=== PATIENT | male | born 1970 | race Caucasian/White ===

== ENCOUNTER 2017-10-30 19:28 | Emergency (ER) | payer BC ==
--- NOTE | 2017-10-30 19:34 | PDOC ---
History of Present Illness - General Chief Complaint: Pain, Acute Stated Complaint: PAIN Time Seen by Provider: 10/30/17 19:34 - History of Present Illness Initial Comments: 10/30/17 19:53 This 47-year-old man with a history of hypertension presents with a one-day history of right-sided abdominal pain. Patient states that pain was dull and "7 /10" in severity yesterday afternoon at onset of pain. He denies any nausea/ vomiting, fever/chills, diarrhea or constipation. No chest pain or shortness of breath Pain continued today although milder ("4/10"). Patient was seen in urgent care earlier today; WBC count was elevated and patient referred here for further evaluation. Past history notable for 2 previous episodes of diverticulitis (2005, 2009). He was hospitalized for first episode but resolved after outpatient antibiotic course after second episode. No history of gallbladder abnormalities. No history of renal stones. Patient denies hematuria/dysuria/urinary urgency or frequency Patient has been able to eat and drink normally today; most recent meal was approximately 5 hours prior to presentation. Last BM yesterday afternoon was normal. Medications Ramipril No known ALLERGIES PMH HTN Diverticular disease sleep apnea(uses CPAP at night) Past History - Past Medical History Allergies/Adverse Reactions: Allergies Allergy/AdvReac Type Severity Reaction Status Date / Time No Known Allergies Allergy Unverified 10/30/17 19:29 Home Medications: Ambulatory Orders Ramipril 2.5 mg PO DAILY 10/30/17 Review of Systems - Review of Systems Able to Perform ROS?: Yes Comments:: 12 point review of systems is negative except for what is noted in the history of present illness *Physical Exam - Physical Exam Comments: GENERAL: Adult male, alert and oriented 3, in no acute distress HEAD: Normal with no signs of trauma. EYES: PERRLA, EOMI, sclera anicteric, conjunctiva clear. ENT: Ears normal, nares patent, oropharynx clear without exudates. Moist mucous membranes. NECK: Normal range of motion, supple without lymphadenopathy, JVD, or masses. LUNGS: Breath sounds equal, clear to auscultation bilaterally. No wheezes, and no crackles. HEART:Regular rate and rhythm, normal S1 and S2 without murmur, rub or gallop. ABDOMEN:.normal bowel sounds; mild tenderness mid right abdomen/right flank; no guarding or rebound; no organomegaly EXTREMITIES: Normal range of motion, no edema. No clubbing or cyanosis. No erythema, or tenderness. NEUROLOGICAL: Cranial nerves II through XII grossly intact. Normal speech. No focal neurological deficits. MUSCULOSKELETAL: Back non-tender to palpation, no CVA tenderness SKIN: Warm, Dry, normal turgor, no rashes or lesions noted. ED Treatment Course - LABORATORY CBC & Chemistry Diagram: 10/30/17 20:00 10/30/17 20:00 Medical Decision Making - Medical Decision Making 10/30/17 20:31 This 47-year-old man with a history of diverticular disease presents with 1 day history of right mid abdomen/right flank pain. No history of fever or vomiting. No history of symptoms. Patient has mild tenderness right mid abdomen without peritoneal signs. No Linda's sign. CBC/chemistry profile/ lactate/UA sent Differential diagnosis includes diverticulitis/appendicitis/renal stone/biliary tract pathology; doubt pancreatitis 10/30/17 21:57 Abdominal/pelvic CT shows 1. 7 cm dilatation of the appendix with marked periappendiceal fat stranding/inflammation. No evidence of perforation or abscess. There is a 3 mm nonobstructing right renal calculus without obstructive uropathy present. White blood cell count elevated at 15,500 10/30/17 22:[address] Horowitz who is on-call for general surgery. He suggests Zosyn 3.375 g every 6 hours/nothing by mouth/fluids/analgesia as necessary. He will see the patient in the morning for reevaluation/surgery 10/31/17 05:21 Patient was given one dose of Zosyn 3.375 g IV Case was discussed with FRIEDA Carlos of [facility]; the patient was examined by her and patient admitted to inpatient service under Dr. Quintanilla. Admission orders were written. Patient was very concerned that he would not be able to sleep without his CPAP machine (he was told that we had CPAP equipment here but he stated that he did not know his settings and did not want to use any other machine except his own. ) Therefore, he signed out AGAINST MEDICAL ADVICE at 11:55 PM, stating that he would return with his CPAP equipment . Risks of leaving the hospital explained to the patient, who understood the danger of perforation/sepsis with acute appendicitis. However, patient did not return. Dr. Quintanilla informed. Message left with Dr. Horowitz's service *DC/Admit/Observation/Transfer Diagnosis at time of Disposition: Acute appendicitis Qualifiers: Acute appendicitis type: unspecified acute appendicitis type Qualified Code(s) : K35.80 - Unspecified acute appendicitis - Discharge Dispostion Disposition: AGAINST MEDICAL ADVICE Condition at time of disposition: Stable Admit: Yes - Referrals Referrals: Kiet Nelson [Primary Care Provider] - - Patient Instructions - Post Discharge Activity
[2017-10-30 19:38] VITALS: BMI 33.0
[2017-10-30 20:35] LABS: HEMATOCRIT 46.7 % (35.4-49); MCH 29.5 pg (25.7-33.7); MCHC 34.2 g/dl (32.0-35.9); MEAN CELL VOLUME 86.1 fl (80-96); MEAN PLT VOLUME 8.5 fl (7.5-11.1); PLATELET COUNT 273 K/MM3 (134-434); RBC 5.42 M/mm3 (4.00-5.60); RDW 12.6 % (11.9-15.9); WHITE BLOOD COUNT 15.5 K/mm3 (4.0-10.8)
[2017-10-30 20:40] LABS: ALBUMIN 3.9 g/dl (3.5-5.0); ALK PHOS 60 U/L (32-92); ANION GAP 6 (8-16); BILIRUBIN,TOTAL 1.7 mg/dl (0.2-1.0); BLOOD UREA NITROGEN 12 mg/dl (7-18); CALCIUM 9.3 mg/dl (8.4-10.2); CHLORIDE 103 mmol/L (98-107); CO2 24 mmol/L (22-28); CREATININE 0.8 mg/dl (0.6-1.3); GLUCOSE,RANDOM 158 mg/dl (74-106); POTASSIUM 3.6 mmol/L (3.5-5.1); SGOT/AST 18 U/L (10-42); SGPT/ALT 14 U/L (10-40); SODIUM 133 mmol/L (136-145); TOT PROT 7.3 g/dl (6.4-8.3)
[2017-10-30 21:09] LABS: PLATELET ESTIMATE ADEQUATE
[2017-10-30 21:23] LABS: URINE APPEARANCE Clear; URINE BILIRUBIN Negative (NEGATIVE); URINE BLOOD Negative (NEGATIVE); URINE GLUCOSE (UA) Negative (NEGATIVE); URINE KETONE Negative (NEGATIVE); URINE LEUK ESTERASE Negative (NEGATIVE); URINE NITRITE Negative (NEGATIVE); URINE PROTEIN Trace (NEGATIVE)
[2017-10-30 21:24] LABS: URINE COLOR YELLOW
[2017-10-30] MEDS ORDERED: PIPERACILLIN/TAZOB 3.375 GM 50 ML IVPB ONE (22:07)
[2017-10-30] MEDS ORDERED: PIPERACILLIN/TAZOBACTAM 3.375 GM VIAL IVPB ONE (22:16)
--- NOTE | 2017-10-30 22:20 | HP ---
CHIEF COMPLAINT: Abdominal Pain PCP: HISTORY OF PRESENT ILLNESS: This is a 47 y/o man with a past medical history of Diverticulitis. Who presents to the ED sent in by [facility] for R-sided abdominal pain x 1 day. Patient reports noting tenderness to his R-mid abdomen, increased with movement. Patient reports tolerating meals and beverages today without incident. Patient denies fever, chills, cough, SOB, CP, palpitations, N/V/D, constipation, dysuria. Patient denies fall or trauma. Patient was given Cipro and Metronidazole at [facility] ER course was notable for: (1) CTAP- acute appendicitis (2) Sepsis: WBC 15.5, T 99.4, P 125 (3) EKG ST 109bpm Recent Travel: None PAST MEDICAL HISTORY: HTN Diverticulitis FILIPE PAST SURGICAL HISTORY: None Social History: Smoking: Never Alcohol: Occasional Drugs: None Lives with spouse, employed [employer] Family History: Father- [place], age 69 Mother- [place] (Multiple Myeloma), age 65 Allergies No Known Allergies Allergy (Unverified 10/30/17 19:29) HOME MEDICATIONS: Home Medications Medication Instructions Recorded Ramipril 2.5 mg PO DAILY 10/30/17 REVIEW OF SYSTEMS CONSTITUTIONAL: Absent: fever, chills, diaphoresis, generalized weakness, malaise, loss of appetite, weight change HEENT: Absent: rhinorrhea, nasal congestion, throat pain, throat swelling, difficulty swallowing, mouth swelling, ear pain, eye pain, visual changes CARDIOVASCULAR: Absent: chest pain, syncope, palpitations, irregular heart rate, lightheadedness , peripheral edema RESPIRATORY: Absent: cough, shortness of breath, dyspnea with exertion, orthopnea, wheezing, stridor, hemoptysis GASTROINTESTINAL: abdominal pain Absent: abdominal distension, nausea, vomiting, diarrhea, constipation, melena, hematochezia GENITOURINARY: Absent: dysuria, frequency, urgency, hesitancy, hematuria, flank pain, genital pain MUSCULOSKELETAL: Absent: myalgia, arthralgia, joint swelling, back pain, neck pain SKIN: Absent: rash, itching, pallor HEMATOLOGIC/IMMUNOLOGIC: Absent: easy bleeding, easy bruising, lymphadenopathy, frequent infections ENDOCRINE: Absent: unexplained weight gain, unexplained weight loss, heat intolerance, cold intolerance NEUROLOGIC: Absent: headache, focal weakness or paresthesias, dizziness, unsteady gait, seizure, mental status changes, bladder or bowel incontinence PSYCHIATRIC: Absent: anxiety, depression, suicidal or homicidal ideation, hallucinations. PHYSICAL EXAMINATION Vital Signs - 24 hr 10/30/17 19:32 Temperature 99.4 F Pulse Rate 125 H Respiratory 16 Rate Blood Pressure 175/106 O2 Sat by Pulse 100 Oximetry (%) GENERAL: Awake, alert, and fully oriented, in no acute distress. HEAD: Normal with no signs of trauma. EYES: Pupils equal, round and reactive to light, extraocular movements intact, sclera anicteric, conjunctiva clear. No lid lag. EARS, NOSE, THROAT: Ears normal, nares patent, oropharynx clear without exudates. Moist mucous membranes. NECK: Normal range of motion, supple without lymphadenopathy, JVD, or masses. LUNGS: Breath sounds equal, clear to auscultation bilaterally. No wheezes, and no crackles. No accessory muscle use. HEART: Regular rate and rhythm, normal S1 and S2 without murmur, rub or gallop. ABDOMEN: RMQ tenderness, hypoactive bowel sounds Soft, obese, not distended, no guarding, no rebound, no masses. No hepatomegaly or splenomegaly. MUSCULOSKELETAL: Normal range of motion at all joints. No bony deformities or tenderness. No CVA tenderness. UPPER EXTREMITIES: 2+ pulses, warm, well-perfused. No cyanosis. No clubbing. No peripheral edema. LOWER EXTREMITIES: 2+ pulses, warm, well-perfused. No calf tenderness. No peripheral edema. NEUROLOGICAL: Cranial nerves II-XII intact. Normal speech. Normal gait. PSYCHIATRIC: Cooperative. Good eye contact. Appropriate mood and affect. SKIN: Warm, dry, normal turgor, no rashes or lesions noted, normal capillary refill. Laboratory Results - last 24 hr 10/30/17 10/30/17 10/30/17 09:15 20:00 20:00 WBC 15.5 H RBC 5.42 Hgb 16.0 Hct 46.7 MCV 86.1 MCH 29.5 MCHC 34.2 RDW 12.6 Plt Count 273 MPV 8.5 Neutrophils % No Result Required. Neutrophils % (Manual) 78.0 Band Neutrophils % 4.0 Lymphocytes % No Result Required. Lymphocytes % (Manual) 10.0 Monocytes % (Manual) 5 Platelet Estimate Adequate Sodium 133 L Potassium 3.6 Chloride 103 Carbon Dioxide 24 Anion Gap 6 L BUN 12 Creatinine 0.8 Creat Clearance w eGFR > 60 Random Glucose 158 H Lactic Acid Calcium 9.3 Total Bilirubin 1.7 H AST 18 ALT 14 Alkaline Phosphatase 60 Total Protein 7.3 Albumin 3.9 Lipase Urine Color Yellow Urine Appearance Clear Urine pH 6.0 Ur Specific [place] 1.010 Urine Protein Trace Urine Glucose (UA) Negative Urine Ketones Negative Urine Blood Negative Urine Nitrite Negative Urine Bilirubin Negative Urine Urobilinogen 1.0 Ur Leukocyte Esterase Negative 10/30/17 10/30/17 20:00 20:00 WBC RBC Hgb Hct MCV MCH MCHC RDW Plt Count MPV Neutrophils % Neutrophils % (Manual) Band Neutrophils % Lymphocytes % Lymphocytes % (Manual) Monocytes % (Manual) Platelet Estimate Sodium Potassium Chloride Carbon Dioxide Anion Gap BUN Creatinine Creat Clearance w eGFR Random Glucose Lactic Acid 1.5 Calcium Total Bilirubin AST ALT Alkaline Phosphatase Total Protein Albumin Lipase 103 Urine Color Urine Appearance Urine pH Ur Specific [place] Urine Protein Urine Glucose (UA) Urine Ketones Urine Blood Urine Nitrite Urine Bilirubin Urine Urobilinogen Ur Leukocyte Esterase ASSESSMENT/PLAN: This is a 47 y/o man with a PMHx of: Diverticulitis, HTN, FILIPE (CPAP). Admitted for Sepsis secondary to Acute Appendicitis. Plan: 1. Acute Appendicitis- CTAP- acute appendicitis without perforation, abscess or extraluminal gas. Extensive periappendiceal fat stranding. 3mm non obstructing stone in right renal calculus, no hydronephrosis. Mcgregor Score 3, Blood Cultures-pending, +sepsis- T max 99.4, P- 125, WBC 15.5. Zosyn given in ED , will continue, IVF, morphine sulfate prn, NPO, repeat CBC, BMP in am, monitor vitals 2. Sepsis- Likely secondary to Acute Appendicitis, qSOFA 0, SIRS Criteria met III, blood cultures-pending, NS bolus given in ED, Continue ABX, Lactic acid-nl , monitor CBC, bmp, monitor vitals 3. Hypertension- not controlled, likely secondary to acute pain vs anxiety, monitor BP, continue Ramipril, consider adding CCB or Thiazide. monitor renal function 4. History of Diverticulitis- stable, no active flare 5. FILIPE- stable, patient may use his own CPAP machine 6. F/E/N- D51/2NS@83cc/hr, Replete lytes prn, NPO 7. DVT ppx- OOB, SCDs Code Status: Full Code Dispo: Requires Inpatient Care Problem List - Problem (1) Acute appendicitis Code(s): K35.80 - UNSPECIFIED ACUTE APPENDICITIS Qualifiers: Acute appendicitis type: unspecified acute appendicitis type Qualified Code (s): K35.80 - Unspecified acute appendicitis (2) HTN (hypertension) Code(s): I10 - ESSENTIAL (PRIMARY) HYPERTENSION (3) Leukocytosis Code(s): D72.829 - ELEVATED WHITE BLOOD CELL COUNT, UNSPECIFIED (4) FILIPE (obstructive sleep apnea) Code(s): G47.33 - OBSTRUCTIVE SLEEP APNEA (ADULT) (PEDIATRIC) (5) Hx of diverticulitis of colon Code(s): Z87.19 - PERSONAL HISTORY OF OTHER DISEASES OF THE DIGESTIVE SYSTEM (6) DVT prophylaxis Code(s): QJR9253 - Visit type - Emergency Visit Emergency Visit: Yes ED Registration Date: 10/30/17 Care time: The patient presented to the Emergency Department on the above date and was hospitalized for further evaluation of their emergent condition. - New Patient This patient is new to me today: Yes Date on this admission: 10/31/17 - Critical Care Critical Care patient: No Hospitalist Screening - Colonoscopy Questionnaire Colonoscopy Questionnaire: Colonoscopy Questionnaire - Patient: 50 - 75 years old and never had a screening colonoscopy: No History of colon or rectal polyps, or CA: No History of IBD, Crohn's disease or UC: No History of abdominal radiation therapy as a child: No - Relative: 1 with colon or rectal CA, or polyps at age 60 or younger: No Colon or rectal CA diagnosed at age 45 or younger: No Multiple relatives with colon or rectal CA: No - Outcome: Screening Result: Negative Screen
[2017-10-30] MEDS ORDERED: DEXTROSE 5%-0.45% SALINE 1,000 ML IV SCH (22:45)
[2017-10-30] MEDS ORDERED: morphine SULFATE 4 MG/ML VIAL IVPUSH PRN (22:47)
[2017-10-30 22:57] LABS: INR 1.28 (0.82-1.09); PROTHROMBIN TIME (PATIENT) 14.3 SEC (10.2-13.0)
[2017-10-30] MEDS ORDERED: ACETAMINOPHEN INJECTION 100 ML IVPB ONE (23:28)
[2017-10-30] MEDS ORDERED: ACETAMINOPHEN 1000 MG/100 ML VIAL (NON FORMULARY) IVPB ONE (23:29)
[2017-10-30 23:47] VITALS: BP 171/107; PULSE 118; TEMP 99
[2017-10-31] MEDS ORDERED: PIPERACILLIN/TAZOB 3.375 GM 3.375 GM in DEXTROSE 5%-WATER - 50 ML IVPB ONE ×2 (04:00→06:00)
--- NOTE | 2017-10-31 05:25 | HOSP ---
Subjective - Review of Symptoms Events since last encounter: Hospitalist Encounter Notified by RN that the patient signed out AMA at 23:55 Physical Examination Vital Signs: Vital Signs Temperature 99.0 F 10/30/17 23:46 Pulse Rate 118 H 10/30/17 23:46 Respiratory Rate 18 10/30/17 23:46 Blood Pressure 171/107 10/30/17 23:46 O2 Sat by Pulse Oximetry (%) 97 10/30/17 23:46 Labs: CBC, BMP 10/30/17 20:00 10/30/17 20:00
[2017-10-31] MEDS ORDERED: PIPERACIL/TAZOB 3.375 GM 3.375 GM/50 ML PREMIX IVPB SCH ×2 (06:00→10:00)
--- NOTE | 2017-10-31 16:03 | EKG ---
Test Reason : Blood Pressure : / mmHG Vent. Rate : 109 BPM Atrial Rate : 109 BPM P-R Int : 148 ms QRS Dur : 074 ms QT Int : 340 ms P-R-T Axes : 063 -09 019 degrees QTc Int : 457 ms SINUS TACHYCARDIA MINIMAL VOLTAGE CRITERIA FOR LVH, MAY BE NORMAL VARIANT NO PREVIOUS ECGS AVAILABLE Confirmed by MD MARION, LIZ ([id number]) on 10/31/2017 4:02:45 PM Referred By: AMANDA SERRANO Confirmed By:LIZ SCHULTZ MD
== END 2017-10-30 23:55 | disposition left against medical advice (07) ==
LOC: FER 19:28 → UNDOADMIN 22:20 → FM/S 22:20
PROC: 3E03329 Introduction of Other Anti-infective into Peripheral Vein, Percutaneous Approach (ICD-10-PCS; principal; 2017-10-30)
PROC: 3E033NZ Introduction of Analgesics, Hypnotics, Sedatives into Peripheral Vein, Percutaneous Approach (ICD-10-PCS; 2017-10-30)
DX: K35.80 Unspecified acute appendicitis (principal)
CPT/HCPCS: 36415; 71045-TC-FY; 74177-TC; 80053; 81003; 83605; 83690; 85025; 85610; 87040; 93005; 99283-25